=== PATIENT | male | born 1965 | race Two or more races ===

== ENCOUNTER 2021-01-27 18:27 | Emergency (ER) | payer SELFPAY ==
[2021-01-27] MEDS ORDERED: Acetaminophen/oxyCODONE 325-5 MG Tab PO ONE (20:21)
--- NOTE | 2021-01-27 20:25 | EDM.PDOC ---
ED HPI GENERAL MEDICAL PROBLEM - General Chief Complaint: Back Pain or Injury Stated Complaint: BACK PAIN Time Seen by Provider: 01/27/21 20:17 Source of Information: Reports: Patient History Limitations: Reports: No Limitations - History of Present Illness INITIAL COMMENTS - FREE TEXT/NARRATIVE: 56-year-old male presents with left posterior rib pain status post fall. He slipped in the bathroom and landed on his left posterior lower rib. He admits to positional and pleuritic pain that is constant, severe, nonradiating, no alleviating factors. ROS: A 10-point review of systems, other than pertinent positives and negatives as stated per HPI, is otherwise negative Past medical history: No additional pertinent history Past Surgical history: No additional pertinent history Social history: No additional pertinent history Family history: No additional pertinent history PHYSICAL EXAM General: AOx4, GCS = 15, moderate distress HEENT: dry mucous membrane Neck: supple, no meningismus, no Kernig or Brudzinski Cardiac: S1S2 RRR Respiratory: CTAB, no crackles or rales, no wheezing Abdomen: Soft, nontender, no rebound or guarding, nondistended, no pulsatile mass. Back: nontender to C/T/L-spine. Reproducible left lower rib tenderness Musculoskeletal: NVI distally, no deformity Neuro: No focal deficits, CN 2 - 12 WNL. Left Back Pain Score (Numeric/FACES): 5 - Related Data Allergies Allergy/AdvReac Type Severity Reaction Status Date / Time No Known Allergies Allergy Verified 01/27/21 19:48 Home Meds: Home Meds Acetaminophen/oxyCODONE [Percocet 325-5 MG] 1 each PO Q6H PRN #12 tab 01/27/21 [Rx] Past Medical History - Past Surgical History Musculoskeletal Surgical History: Reports: Shoulder Surgery Other Musculoskeletal Surgeries/Procedures:: right shoulder Social & Family History - Recreational Drug Use Recreational Drug Use: No ED ROS GENERAL - Review of Systems Review Of Systems: See Below (see dictation) ED EXAM,LOWER BACK PAIN/INJURY - Physical Exam Exam: See Below (see dictation) Course - Vital Signs Last Recorded V/S: Last Vital Signs Temp 97.4 F 01/27/21 19:48 Pulse 68 01/27/21 22:17 Resp 18 01/27/21 22:17 BP 117/67 01/27/21 22:17 Pulse Ox 96 01/27/21 22:17 - Orders/Labs/Meds Meds: Medications Discontinued Medications Generic Name Dose Route Start Last Admin Trade Name Brigitte PRN Reason Stop Dose Admin Oxycodone/Acetaminophen 1 tab 01/27/21 20:21 01/27/21 20:40 Acetaminophen/Oxycodone 325-5 Mg Tab PO 01/27/21 20:22 1 tab ONETIME ONE Administration - Re-Assessments/Exams Free Text/Narrative Re-Assessment/Exam: 01/27/21 22:33 After given incentive spirometry and pain medication in the ER, the patient improved and is currently stable for discharge. I performed a repeat exam and did not appreciate new abnormal findings. Patient exhibits normal vital signs and has a normal gait on road test. I advised the patient to return to the ER for reevaluation if symptoms worsened, including fever, worsening pain, or any other worrisome symptoms. I instructed the patient to follow up with their PCP within 2-3 days. MEDICAL DECISION MAKING: I reviewed the patients past medical records, lab and radiographic findings. I discussed the case with the patient. My differential d iagnosis included: Rib fracture, pneumothorax. CT chest demonstrates left 10th and 11th rib fracture with no pneumothorax. Patient was given some spirometry and prescription for pain medication. He was given strict return precautions. Departure - Departure Time of Disposition: 22:34 Disposition: Home, Self-Care 01 Condition: Good Clinical Impression: Left rib fracture - Discharge Information *PRESCRIPTION DRUG MONITORING PROGRAM REVIEWED*: Not Applicable *COPY OF PRESCRIPTION DRUG MONITORING REPORT IN PATIENT GRETCHEN: Not Applicable Prescriptions: Acetaminophen/oxyCODONE [Percocet 325-5 MG] 1 each PO Q6H PRN #12 tab PRN Reason: Pain (Moderate 4-6) Instructions: Rib Fracture, [id number], Back Injury Prevention, [id number] Referrals: PCP,Not In Area [Primary Care Provider] - Forms: ED Department Discharge Additional Instructions: The need for follow-up, as well as the timing and circumstances, are variable depending upon the specifics of your emergency department visit. If you don't have a primary care physician on staff, we will provide you with a referral. We always advise you to contact your personal physician following an emergency department visit to inform them of the circumstance of the visit and for follow-up with them and/or the need for any referrals to a consulting specialist. The emergency department will also refer you to a specialist when appropriate. This referral assures that you have the opportunity for follow-up care with a specialist. All of these measure are taken in an effort to provide you with optimal care, which includes your follow-up. Under all circumstances we always encourage you to contact your private physician who remains a resource for coordinating your care. When calling for follow-up care, please make the office aware that this follow-up is from your recent emergency room visit. If for any reason you are refused follow-up, please contact the [facility] Emergency Department at and asked to speak to the emergency department charge nurse. If you do not have a primary care doctor, please follow up with the clinics below within 3-5 days. [facility] [address] [place] [id number] [facility] [address] [place] [id number] Sepsis Event Note (ED) - Evaluation Sepsis Screening Result: No Definite Risk - Focused Exam Vital Signs: Vital Signs Temp Pulse Resp BP Pulse Ox 01/27/21 22:17 68 18 117/67 96 01/27/21 21:41 79 18 119/76 95 01/27/21 20:18 77 18 122/71 96 01/27/21 19:48 97.4 F 73 16 127/82 96
--- NOTE | 2021-01-27 21:59 | CT ---
INDICATION: LEFT POSTERIOR LOWER RIB PAIN. FALL. CT CHEST WITHOUT CONTRAST TECHNIQUE: Multidetector CT imaging was performed through the chest without intravenous contrast administration. Coronal and sagittal reconstructions were generated. COMPARISON: None. FINDINGS: Lungs and airways: Mild bibasilar lung atelectasis. No confluent infiltrates, suspicious nodules, or masses. Central airways are patent. Pleura and pleural spaces: No pleural effusions or pneumothorax. Heart and mediastinum: Normal heart size. No significant pericardial effusion. No pathologically enlarged mediastinal lymph nodes. Vascular structures: Normal caliber thoracic aorta. Chest wall and axillae: No mass or axillary lymphadenopathy. Osseous structures: Subtle nondisplaced fractures of the posterior left 10th and 11th ribs, best seen on coronal reconstructions. Upper abdomen: Unremarkable. IMPRESSION: Subtle nondisplaced acute fractures of the posterior left 10th and 11th ribs. No pneumothorax or other complication. CUAUHTEMOC MCCAULEY MD [facility] Dictated by Mich Mccauley MD @ 01/27/2021 9:54:57 PM Please note that all CT scans at this facility use dose modulation, iterative reconstruction, and/or weight-based dosing when appropriate to reduce radiation dose to as low as reasonably achievable. Dictated by: Mich Mccauley MD @ 01/27/2021 21:57:08 (Electronically Signed)
== END 2021-01-27 22:49 | disposition home or self-care (01) ==
LOC: MW.ED 18:27
DX: S22.42XA Multiple fractures of ribs, left side, initial encounter for closed fracture (principal); W01.0XXA Fall on same level from slipping, tripping and stumbling without subsequent striking against object, initial encounter; Y92.002 Bathroom of unspecified non-institutional (private) residence as the place of occurrence of the external cause
CPT/HCPCS: 71250; 99283; A9270